=== PATIENT | male | born 2000 | race Caucasian/White ===

== ENCOUNTER 2019-06-25 07:49 | Emergency (ER) | payer OTHER ==
[~2019-06-25] VITALS: Ht 175.3 cm; Wt 91.0 kg
[2019-06-25 07:55] VITALS: BP 135/57
== END 2019-06-25 09:41 | disposition left against medical advice (07) ==
LOC: ER 07:49
DX: Z53.21 Procedure and treatment not carried out due to patient leaving prior to being seen by health care provider (principal)